=== PATIENT | male | born 1965 | race Caucasian/White ===

== ENCOUNTER 2017-11-26 07:37 | Emergency (ER) | payer BC ==
[~2017-11-26] VITALS: Ht 177.8 cm; Wt 95.5 kg
[~2017-11-26 07:37] MED LIST: ATIVAN 0.50.5 MG/TAB PO; INDERAL 10MG10 MG PO; INDOCIN SR 75MG75 MG PO; LUNESTA3 MG PO; NORCO 325 MG-51 TAB PO; PRINIVIL10 MG PO; PRINIVIL5 MG PO; TESTOSTERONE IJ; VOLTAREN 75 DR75 MG PO; ZESTRIL 10MG10 MG PO; ZOLOFT 100MG100 MG PO; [UNRECOGNIZED DRUG - REMARK]
[2017-11-26 07:40] VITALS: TEMP 98.2
[2017-11-26] MEDS ORDERED: TUSS PO (07:43)
[2017-11-26 08:36] LABS: BASO % 0.3 % (0.0-2.0); EOS # 0.2 (0.0-0.7); GRAN # 3.8 (1.4-6.5); GRAN % 60.9 % (42.2-75.2); LYMPH # 1.4 (1.2-3.4); LYMPH % 22.1 % (20.0-51.0); MEAN CELL VOLUME 96 fl (80.0-100.0); MEAN CORPUSCULAR HGB CONC 34 g/dl (33.0-37.0); MONO # 0.8 (0.1-0.6); MONO % 13.4 % (1.7-9.3); PLATELET COUNT 249 K/mm3 (130-400); RED BLOOD COUNT 6.02 M/mm3 (4.20-5.60); REDCELL DISTRIBUTION WIDTH-CV 13.8 % (11.5-14.5)
[2017-11-26 08:40] LABS: HEMATOCRIT 57.5 % (42.0-52.0); HEMOGLOBIN 19.6 g/dl (13.5-18.0); MEAN CORPUSCULAR HEMOGLOBIN 33 pg (27.0-31.0)
[2017-11-26 08:47] LABS: INFLUENZA A NEGATIVE; INFLUENZA B NEGATIVE
[2017-11-26 09:04] LABS: ALBUMIN 4.9 gm/dL (3.5-5.0); BILIRUBIN,TOTAL 0.7 mg/dL (0.0-1.0); CALCIUM 9.4 mg/dL (8.4-10.2); CREATININE, serum 1.35 mg/dL (0.66-1.25); POTASSIUM 4.6 mmol/L (3.4-5.0); TOTAL PROTEIN 8.3 gm/dL (6.4-8.2)
[2017-11-26] MEDS ORDERED: ZOFRAN ODT4 MG PO (09:54)
[2017-11-26 10:24] VITALS: BP 144/65; PULSE 92
== END 2017-11-26 10:25 | disposition home or self-care (01) ==
LOC: COL.ER 07:37
PROVIDERS: Physician Assistant
DX: J20.9 Acute bronchitis, unspecified (principal); F41.9 Anxiety disorder, unspecified; I10 Essential (primary) hypertension
CPT/HCPCS: J1170; J1885; J2405; J7030

== ENCOUNTER 2018-02-05 14:56 | Inpatient (IN) | payer BC ==
[~2018-02-05] VITALS: Ht 177.8 cm; Wt 91.8 kg
[~2018-02-05 14:56] MED LIST changes: -TESTOSTERONE IJ; +TESTOSTERONE IM; +TUSS PO; +ZOFRAN ODT4 MG PO
[2018-02-05] MEDS ORDERED: PRIL40 PO (16:14)
[2018-02-05 16:24] LABS: BASO % 0.2 % (0.0-2.0); EOS # 0.1 (0.0-0.7); EOS % 0.4 % (0-4.0); GRAN # 9.5 (1.4-6.5); GRAN % 74.5 % (42.2-75.2); HEMATOCRIT 53.8 % (42.0-52.0); HEMOGLOBIN 18.9 g/dl (13.5-18.0); LYMPH # 1.9 (1.2-3.4); LYMPH % 14.8 % (20.0-51.0); MEAN CELL VOLUME 94 fl (80.0-100.0); MEAN CORPUSCULAR HEMOGLOBIN 33 pg (27.0-31.0); MEAN CORPUSCULAR HGB CONC 35 g/dl (33.0-37.0); MEAN PLATELET VOLUME 9.1 fl (7.4-10.4); MONO # 1.2 (0.1-0.6); MONO % 9.6 % (1.7-9.3); PLATELET COUNT 256 K/mm3 (130-400); RED BLOOD COUNT 5.73 M/mm3 (4.20-5.60); REDCELL DISTRIBUTION WIDTH-CV 14.3 % (11.5-14.5)
[2018-02-05 16:47] LABS: ALBUMIN 4.8 gm/dL (3.5-5.0); BILIRUBIN,TOTAL 0.6 mg/dL (0.0-1.0); CALCIUM 9.7 mg/dL (8.4-10.2); CREATININE, serum 1.11 mg/dL (0.66-1.25); POTASSIUM 4.3 mmol/L (3.4-5.0); TOTAL PROTEIN 7.9 gm/dL (6.4-8.2)
[2018-02-05 18:52] VITALS: BP 163/94; PULSE 95; TEMP 98.4
[2018-02-06] VITALS (8 sets, daily range): BP systolic 91–163; BP diastolic 49–102; PULSE 58–102; TEMP 97.9–98.7
[2018-02-06 07:22] LABS: BASO % 0.2 % (0.0-2.0); EOS # 0.1 (0.0-0.7); EOS % 1.2 % (0-4.0); GRAN # 5.4 (1.4-6.5); GRAN % 67.4 % (42.2-75.2); HEMATOCRIT 50.3 % (42.0-52.0); HEMOGLOBIN 17.1 g/dl (13.5-18.0); LYMPH # 1.4 (1.2-3.4); LYMPH % 17.2 % (20.0-51.0); MEAN CELL VOLUME 96 fl (80.0-100.0); MEAN CORPUSCULAR HEMOGLOBIN 33 pg (27.0-31.0); MEAN CORPUSCULAR HGB CONC 34 g/dl (33.0-37.0); MONO # 1.1 (0.1-0.6); MONO % 13.6 % (1.7-9.3); PLATELET COUNT 219 K/mm3 (130-400); RED BLOOD COUNT 5.22 M/mm3 (4.20-5.60); REDCELL DISTRIBUTION WIDTH-CV 14.7 % (11.5-14.5)
[2018-02-06 07:33] LABS: ALBUMIN 4.2 gm/dL (3.5-5.0); BILIRUBIN,TOTAL 1.1 mg/dL (0.0-1.0); CALCIUM 8.6 mg/dL (8.4-10.2); CREATININE, serum 1.07 mg/dL (0.66-1.25); POTASSIUM 4.3 mmol/L (3.4-5.0); TOTAL PROTEIN 7.1 gm/dL (6.4-8.2)
[2018-02-07] VITALS (9 sets, daily range): BP systolic 104–143; BP diastolic 69–80; PULSE 76–87; TEMP 97.6–98.6
[2018-02-07 06:54] LABS: BASO % 0.1 % (0.0-2.0); EOS # 0.1 (0.0-0.7); EOS % 0.5 % (0-4.0); GRAN # 7.8 (1.4-6.5); GRAN % 77.3 % (42.2-75.2); HEMOGLOBIN 15.3 g/dl (13.5-18.0); LYMPH # 1.1 (1.2-3.4); LYMPH % 10.8 % (20.0-51.0); MEAN CORPUSCULAR HEMOGLOBIN 33 pg (27.0-31.0); MEAN CORPUSCULAR HGB CONC 33 g/dl (33.0-37.0); MEAN PLATELET VOLUME 9.3 fl (7.4-10.4); MONO # 1.1 (0.1-0.6); MONO % 10.8 % (1.7-9.3); PLATELET COUNT 185 K/mm3 (130-400); RED BLOOD COUNT 4.62 M/mm3 (4.20-5.60); REDCELL DISTRIBUTION WIDTH-CV 14.9 % (11.5-14.5)
[2018-02-07 07:10] LABS: MEAN CELL VOLUME 102 fl (80.0-100.0)
[2018-02-07 07:12] LABS: ALBUMIN 3.9 gm/dL (3.5-5.0); CALCIUM 7.9 mg/dL (8.4-10.2); CREATININE, serum 1.3 mg/dL (0.66-1.25); POTASSIUM 4.5 mmol/L (3.4-5.0); TOTAL PROTEIN 6.7 gm/dL (6.4-8.2)
[2018-02-08 03:15] VITALS: BP 137/65; PULSE 92; TEMP 99.8
[2018-02-08 06:12] VITALS: BP 135/66; PULSE 83
[2018-02-08 06:42] LABS: BASO % 0.2 % (0.0-2.0); EOS % 0.1 % (0-4.0); GRAN # 9.1 (1.4-6.5); GRAN % 85.7 % (42.2-75.2); HEMATOCRIT 46.4 % (42.0-52.0); HEMOGLOBIN 15.1 g/dl (13.5-18.0); LYMPH # 0.8 (1.2-3.4); LYMPH % 7.4 % (20.0-51.0); MEAN CELL VOLUME 101 fl (80.0-100.0); MEAN CORPUSCULAR HEMOGLOBIN 33 pg (27.0-31.0); MEAN CORPUSCULAR HGB CONC 33 g/dl (33.0-37.0); MEAN PLATELET VOLUME 9.5 fl (7.4-10.4); MONO # 0.7 (0.1-0.6); MONO % 6.1 % (1.7-9.3); PLATELET COUNT 225 K/mm3 (130-400); RED BLOOD COUNT 4.59 M/mm3 (4.20-5.60); REDCELL DISTRIBUTION WIDTH-CV 14.5 % (11.5-14.5)
[2018-02-08 06:57] LABS: BILIRUBIN,TOTAL 0.9 mg/dL (0.0-1.0); CALCIUM 7.7 mg/dL (8.4-10.2); CHOLESTEROL RISK RATIO 4.3; CREATININE, serum 1.09 mg/dL (0.66-1.25); POTASSIUM 4.6 mmol/L (3.4-5.0); TOTAL PROTEIN 6.9 gm/dL (6.4-8.2)
[2018-02-08 08:55] LABS: ARTERIAL BLD GAS O2 SATURATION 95.9 % (92-100); ARTERIAL BLD GAS TCO2 CT 28.9; ARTERIAL BLOOD GAS BASE EXCESS -1.5 (-2-2); ARTERIAL BLOOD GAS PCO2 61.1 mmHg (35-45); ARTERIAL BLOOD GAS PO2 84.3 mmHg (80-100); ARTERIAL BLOOD GAS pH 7.26 (7.35-7.45)
[2018-02-08 09:04] LABS: TROPONIN-I 0.033 ng/mL (0.000-0.034)
[2018-02-08 12:00] VITALS: BP 136/77; PULSE 87
[2018-02-08 15:15] LABS: ARTERIAL BLD GAS O2 SATURATION 94.5 % (92-100); ARTERIAL BLD GAS TCO2 CT 29.3; ARTERIAL BLOOD GAS HCO3 27.4 meq/L (22-26); ARTERIAL BLOOD GAS PCO2 61.3 mmHg (35-45); ARTERIAL BLOOD GAS PO2 79.5 mmHg (80-100); ARTERIAL BLOOD GAS pH 7.27 (7.35-7.45)
[2018-02-08 16:00] VITALS: BP 126/77; PULSE 75; PULSE 83; TEMP 97.8
[2018-02-08 17:49] LABS: ARTERIAL BLD GAS O2 SATURATION 94.2 % (92-100); ARTERIAL BLD GAS TCO2 CT 25.8; ARTERIAL BLOOD GAS BASE EXCESS -3.6 (-2-2); ARTERIAL BLOOD GAS HCO3 24.1 meq/L (22-26); ARTERIAL BLOOD GAS PCO2 54.1 mmHg (35-45); ARTERIAL BLOOD GAS PO2 75.8 mmHg (80-100); ARTERIAL BLOOD GAS pH 7.27 (7.35-7.45)
[2018-02-08 20:00] VITALS: BP 132/78; PULSE 79; TEMP 99.2
[2018-02-09] VITALS: BP 126/77; PULSE 76; PULSE 79; TEMP 98.9
[2018-02-09 04:00] VITALS: BP 103/60; PULSE 70; TEMP 97.9
[2018-02-09 04:41] LABS: ARTERIAL BLD GAS O2 SATURATION 96.3 % (92-100); ARTERIAL BLOOD GAS BASE EXCESS 0.6 (-2-2); ARTERIAL BLOOD GAS HCO3 25.7 meq/L (22-26); ARTERIAL BLOOD GAS PCO2 42.7 mmHg (35-45); ARTERIAL BLOOD GAS PO2 82.2 mmHg (80-100)
[2018-02-09 06:37] LABS: EOS % 0.2 % (0-4.0); GRAN # 6.7 (1.4-6.5); GRAN % 83.3 % (42.2-75.2); HEMATOCRIT 41.1 % (42.0-52.0); HEMOGLOBIN 13.8 g/dl (13.5-18.0); LYMPH # 0.6 (1.2-3.4); LYMPH % 7.5 % (20.0-51.0); MEAN CELL VOLUME 98 fl (80.0-100.0); MEAN CORPUSCULAR HEMOGLOBIN 33 pg (27.0-31.0); MEAN CORPUSCULAR HGB CONC 34 g/dl (33.0-37.0); MEAN PLATELET VOLUME 9.4 fl (7.4-10.4); MONO # 0.7 (0.1-0.6); MONO % 8.5 % (1.7-9.3); PLATELET COUNT 213 K/mm3 (130-400); RED BLOOD COUNT 4.19 M/mm3 (4.20-5.60); REDCELL DISTRIBUTION WIDTH-CV 13.9 % (11.5-14.5)
[2018-02-09 06:57] LABS: ALBUMIN 3.5 gm/dL (3.5-5.0); BILIRUBIN,TOTAL 0.9 mg/dL (0.0-1.0); CALCIUM 7.5 mg/dL (8.4-10.2); CREATININE, serum 1.13 mg/dL (0.66-1.25); MAGNESIUM 1.9 mg/dL (1.6-2.3); PHOSPHOROUS 1.4 mg/dL (2.5-4.5); POTASSIUM 3.9 mmol/L (3.4-5.0); TOTAL PROTEIN 6.2 gm/dL (6.4-8.2)
[2018-02-09 08:00] VITALS: BP 93/56; PULSE 68; TEMP 97
[2018-02-09 10:25] LABS: ARTERIAL BLD GAS O2 SATURATION 98.8 % (92-100); ARTERIAL BLD GAS TCO2 CT 26.3; ARTERIAL BLOOD GAS BASE EXCESS 1.4 (-2-2); ARTERIAL BLOOD GAS HCO3 25.2 meq/L (22-26); ARTERIAL BLOOD GAS PCO2 37.2 mmHg (35-45); ARTERIAL BLOOD GAS pH 7.45 (7.35-7.45)
[2018-02-09 10:27] LABS: ARTERIAL BLOOD GAS PO2 165.2 mmHg (80-100)
[2018-02-09 12:00] VITALS: BP 100/54; PULSE 65; TEMP 97.9
[2018-02-09 16:00] VITALS: BP 113/62; PULSE 68; TEMP 98.9
[2018-02-09 20:00] VITALS: BP 98/60; PULSE 67; TEMP 100.3
[2018-02-10] VITALS: BP 99/62; PULSE 65; TEMP 98.3
[2018-02-10 04:00] VITALS: BP 109/81; PULSE 63; TEMP 100.3
[2018-02-10 04:24] LABS: ARTERIAL BLD GAS O2 SATURATION 94.4 % (92-100); ARTERIAL BLD GAS TCO2 CT 29.7; ARTERIAL BLOOD GAS BASE EXCESS 4.4 (-2-2); ARTERIAL BLOOD GAS HCO3 28.5 meq/L (22-26); ARTERIAL BLOOD GAS PCO2 40.8 mmHg (35-45); ARTERIAL BLOOD GAS PO2 71.1 mmHg (80-100); ARTERIAL BLOOD GAS pH 7.46 (7.35-7.45)
[2018-02-10 05:56] LABS: BASO % 0.4 % (0.0-2.0); EOS # 0.1 (0.0-0.7); EOS % 1.2 % (0-4.0); GRAN # 3.7 (1.4-6.5); GRAN % 71.7 % (42.2-75.2); HEMATOCRIT 40.7 % (42.0-52.0); HEMOGLOBIN 13.7 g/dl (13.5-18.0); LYMPH # 0.8 (1.2-3.4); LYMPH % 14.9 % (20.0-51.0); MEAN CELL VOLUME 97 fl (80.0-100.0); MEAN CORPUSCULAR HEMOGLOBIN 33 pg (27.0-31.0); MEAN CORPUSCULAR HGB CONC 34 g/dl (33.0-37.0); MEAN PLATELET VOLUME 9.3 fl (7.4-10.4); MONO # 0.6 (0.1-0.6); MONO % 11.4 % (1.7-9.3); PLATELET COUNT 179 K/mm3 (130-400); RED BLOOD COUNT 4.18 M/mm3 (4.20-5.60); REDCELL DISTRIBUTION WIDTH-CV 14.4 % (11.5-14.5)
[2018-02-10 06:12] LABS: BILIRUBIN,TOTAL 0.8 mg/dL (0.0-1.0); CALCIUM 7.3 mg/dL (8.4-10.2); CREATININE, serum 1.09 mg/dL (0.66-1.25); MAGNESIUM 2.1 mg/dL (1.6-2.3); PHOSPHOROUS 0.8 mg/dL (2.5-4.5); POTASSIUM 3.1 mmol/L (3.4-5.0); TOTAL PROTEIN 5.9 gm/dL (6.4-8.2)
[2018-02-10 08:00] VITALS: BP 113/74; PULSE 61; TEMP 100
[2018-02-10 12:00] VITALS: BP 105/66; PULSE 63; TEMP 99.5
[2018-02-10 16:00] VITALS: BP 105/66; PULSE 60; TEMP 99.5
[2018-02-10 18:19] LABS: CALCIUM 7.3 mg/dL (8.4-10.2); CREATININE, serum 1.07 mg/dL (0.66-1.25); PHOSPHOROUS 1.9 mg/dL (2.5-4.5); POTASSIUM 3.3 mmol/L (3.4-5.0)
[2018-02-10 20:00] VITALS: BP 124/77; PULSE 58; TEMP 99.4
[2018-02-11] VITALS: BP 101/64; PULSE 62; TEMP 99.2
[2018-02-11 04:00] VITALS: BP 116/69; PULSE 64; TEMP 99.4
[2018-02-11 05:09] LABS: ARTERIAL BLD GAS O2 SATURATION 94.9 % (92-100); ARTERIAL BLD GAS TCO2 CT 28.2; ARTERIAL BLOOD GAS BASE EXCESS 2.6 (-2-2); ARTERIAL BLOOD GAS PCO2 40.8 mmHg (35-45); ARTERIAL BLOOD GAS PO2 76.2 mmHg (80-100); ARTERIAL BLOOD GAS pH 7.44 (7.35-7.45)
[2018-02-11 05:48] LABS: BASO % 0.7 % (0.0-2.0); EOS # 0.1 (0.0-0.7); EOS % 2.8 % (0-4.0); GRAN # 2.6 (1.4-6.5); GRAN % 60.5 % (42.2-75.2); HEMATOCRIT 40.1 % (42.0-52.0); HEMOGLOBIN 13.4 g/dl (13.5-18.0); MEAN CELL VOLUME 99 fl (80.0-100.0); MEAN CORPUSCULAR HEMOGLOBIN 33 pg (27.0-31.0); MEAN CORPUSCULAR HGB CONC 33 g/dl (33.0-37.0); MEAN PLATELET VOLUME 9.5 fl (7.4-10.4); MONO # 0.5 (0.1-0.6); MONO % 12.3 % (1.7-9.3); PLATELET COUNT 166 K/mm3 (130-400); RED BLOOD COUNT 4.07 M/mm3 (4.20-5.60); REDCELL DISTRIBUTION WIDTH-CV 14.7 % (11.5-14.5)
[2018-02-11 06:09] LABS: ALBUMIN 2.9 gm/dL (3.5-5.0); BILIRUBIN,TOTAL 0.4 mg/dL (0.0-1.0); CALCIUM 7.5 mg/dL (8.4-10.2); CREATININE, serum 1.08 mg/dL (0.66-1.25); MAGNESIUM 2.1 mg/dL (1.6-2.3); PHOSPHOROUS 1.8 mg/dL (2.5-4.5); POTASSIUM 3.5 mmol/L (3.4-5.0); TOTAL PROTEIN 5.9 gm/dL (6.4-8.2)
[2018-02-11 06:37] LABS: TSH w REFLEX 4.64 uIU/mL (0.465-4.680)
[2018-02-11 07:20] VITALS: BP 110/70; PULSE 73; TEMP 98.3
[2018-02-11 12:30] VITALS: BP 123/76; PULSE 74; TEMP 99
[2018-02-11 15:25] VITALS: BP 123/80; PULSE 71; TEMP 99
[2018-02-11 15:55] LABS: PTH,INTACT 338.3 pg/mL (6.6-88.9)
[2018-02-11 20:00] VITALS: BP 127/74; PULSE 73; TEMP 99.8
[2018-02-12] VITALS: BP 104/69; PULSE 61; TEMP 97
[2018-02-12 04:00] VITALS: BP 122/83; PULSE 62; TEMP 99.6
[2018-02-12 04:46] LABS: ARTERIAL BLD GAS O2 SATURATION 92.6 % (92-100); ARTERIAL BLD GAS TCO2 CT 22.9; ARTERIAL BLOOD GAS BASE EXCESS -2.1 (-2-2); ARTERIAL BLOOD GAS HCO3 21.8 meq/L (22-26); ARTERIAL BLOOD GAS PCO2 35.1 mmHg (35-45); ARTERIAL BLOOD GAS PO2 67.3 mmHg (80-100); ARTERIAL BLOOD GAS pH 7.41 (7.35-7.45)
[2018-02-12 05:31] LABS: BASO % 0.5 % (0.0-2.0); EOS # 0.1 (0.0-0.7); EOS % 2.1 % (0-4.0); HEMATOCRIT 40.2 % (42.0-52.0); HEMOGLOBIN 13.6 g/dl (13.5-18.0); LYMPH # 1.3 (1.2-3.4); LYMPH % 20.9 % (20.0-51.0); MEAN CELL VOLUME 98 fl (80.0-100.0); MEAN CORPUSCULAR HEMOGLOBIN 33 pg (27.0-31.0); MEAN CORPUSCULAR HGB CONC 34 g/dl (33.0-37.0); MEAN PLATELET VOLUME 9.5 fl (7.4-10.4); MONO # 0.7 (0.1-0.6); MONO % 10.8 % (1.7-9.3); PLATELET COUNT 160 K/mm3 (130-400); RED BLOOD COUNT 4.09 M/mm3 (4.20-5.60); REDCELL DISTRIBUTION WIDTH-CV 14.9 % (11.5-14.5)
[2018-02-12 05:49] LABS: CREATININE, serum 1.13 mg/dL (0.66-1.25); PHOSPHOROUS 2.6 mg/dL (2.5-4.5); POTASSIUM 3.5 mmol/L (3.4-5.0)
[2018-02-12 08:00] VITALS: BP 131/79; PULSE 65; TEMP 97.9
[2018-02-12 12:00] VITALS: BP 158/92; PULSE 86; TEMP 98.2
[2018-02-12] MEDS ORDERED: ATIVAN 1MG T1 MG/TAB (13:21)
[2018-02-12 16:00] VITALS: BP 156/100; PULSE 88; TEMP 98.7
[2018-02-12 20:00] VITALS: BP 174/78; PULSE 84; TEMP 98.1
[2018-02-13] VITALS (7 sets, daily range): BP systolic 150–195; BP diastolic 87–122; PULSE 74–92; TEMP 98.2–98.9
[2018-02-13 05:47] LABS: BASO % 0.5 % (0.0-2.0); EOS # 0.1 (0.0-0.7); EOS % 1.4 % (0-4.0); GRAN # 4.6 (1.4-6.5); GRAN % 70.6 % (42.2-75.2); HEMATOCRIT 44.5 % (42.0-52.0); HEMOGLOBIN 14.9 g/dl (13.5-18.0); LYMPH % 15.6 % (20.0-51.0); MEAN CELL VOLUME 97 fl (80.0-100.0); MEAN CORPUSCULAR HEMOGLOBIN 33 pg (27.0-31.0); MEAN CORPUSCULAR HGB CONC 34 g/dl (33.0-37.0); MEAN PLATELET VOLUME 9.8 fl (7.4-10.4); MONO # 0.7 (0.1-0.6); MONO % 11.1 % (1.7-9.3); PLATELET COUNT 202 K/mm3 (130-400); RED BLOOD COUNT 4.57 M/mm3 (4.20-5.60); REDCELL DISTRIBUTION WIDTH-CV 14.4 % (11.5-14.5)
[2018-02-13 05:59] LABS: CALCIUM 9.2 mg/dL (8.4-10.2); CREATININE, serum 1.32 mg/dL (0.66-1.25); MAGNESIUM 2.1 mg/dL (1.6-2.3); POTASSIUM 3.7 mmol/L (3.4-5.0)
[2018-02-14 01:04] VITALS: BP 171/94; PULSE 78; TEMP 98.2
[2018-02-14 04:20] VITALS: BP 207/122; PULSE 79; TEMP 98.5
[2018-02-14 05:21] VITALS: BP 209/116; PULSE 82
[2018-02-14 06:02] VITALS: BP 155/88
[2018-02-14 07:19] VITALS: BP 156/84; PULSE 74; TEMP 98.3
[2018-02-14 07:45] LABS: BASO % 0.3 % (0.0-2.0); EOS # 0.1 (0.0-0.7); EOS % 0.9 % (0-4.0); GRAN % 72.6 % (42.2-75.2); LYMPH # 0.9 (1.2-3.4); LYMPH % 13.5 % (20.0-51.0); MEAN CELL VOLUME 95 fl (80.0-100.0); MEAN CORPUSCULAR HEMOGLOBIN 33 pg (27.0-31.0); MEAN CORPUSCULAR HGB CONC 34 g/dl (33.0-37.0); MEAN PLATELET VOLUME 9.7 fl (7.4-10.4); MONO # 0.9 (0.1-0.6); MONO % 12.4 % (1.7-9.3); PLATELET COUNT 238 K/mm3 (130-400); RED BLOOD COUNT 4.62 M/mm3 (4.20-5.60); REDCELL DISTRIBUTION WIDTH-CV 14.6 % (11.5-14.5)
[2018-02-14 07:53] LABS: CALCIUM 9.4 mg/dL (8.4-10.2); CREATININE, serum 1.46 mg/dL (0.66-1.25); POTASSIUM 3.1 mmol/L (3.4-5.0)
[2018-02-14 11:19] VITALS: BP 151/89; PULSE 78; TEMP 98.3
[2018-02-14] MEDS ORDERED: NATURE'S B5000 IU/ML PO (17:48)
== END 2018-02-14 19:15 | disposition home or self-care (01) | DRG 438 ==
LOC: COL.ER 14:56 → MEDICAL 17:49 → ICU 02-08 10:37 → MEDICAL 02-08 10:37 → ICU 02-08 11:05 → MEDICAL 02-13 15:55
PROVIDERS: Emergency Medicine; Internal Medicine; Internal Medicine Critical Care Medicine; Internal Medicine Pulmonary Disease; Surgery
PROC: 5A1945Z Respiratory Ventilation, 24-96 Consecutive Hours (ICD-10-PCS; principal; 2018-02-09)
PROC: 0BH17EZ Insertion of Endotracheal Airway into Trachea, Via Natural or Artificial Opening (ICD-10-PCS; 2018-02-09)
PROC: 0DB68ZX Excision of Stomach, Via Natural or Artificial Opening Endoscopic, Diagnostic (ICD-10-PCS; 2018-02-11)
DX: K85.00 Idiopathic acute pancreatitis without necrosis or infection (principal); J96.01 Acute respiratory failure with hypoxia; J96.02 Acute respiratory failure with hypercapnia; J18.9 Pneumonia, unspecified organism; K29.71 Gastritis, unspecified, with bleeding; K29.81 Duodenitis with bleeding; E87.1 Hypo-osmolality and hyponatremia; N17.9 Acute kidney failure, unspecified; I10 Essential (primary) hypertension; R33.9 Retention of urine, unspecified; E87.6 Hypokalemia; E83.39 Other disorders of phosphorus metabolism
CPT/HCPCS: 99222; 99223; 99232-AI; 99233-AI; C1751; C1894; C9113; G0378; J0330; J0360; J0456; J0610; J1200; J1644; J1650; J1940; J2060; J2250; J2270; J2405; J2543; J2550; J2704; J2765; J3010; J3370; J7030; J7040; J7050; J7120; Q9967

== ENCOUNTER 2018-07-12 18:19 | Inpatient (IN) | payer BC ==
[~2018-07-12] VITALS: Ht 177.8 cm; Wt 100.6 kg
[~2018-07-12 18:19] MED LIST changes: +ATIVAN 1MG T1 MG/TAB; +NATURE'S B5000 IU/ML PO; +PRIL40 PO
[2018-07-12 18:55] LABS: BASO % 0.2 % (0.0-2.0); EOS % 0.2 % (0-4.0); GRAN # 9.7 (1.4-6.5); GRAN % 81.1 % (42.2-75.2); LYMPH # 1.3 (1.2-3.4); LYMPH % 11.1 % (20.0-51.0); MEAN CELL VOLUME 94 fl (80.0-100.0); MEAN CORPUSCULAR HGB CONC 34 g/dl (33.0-37.0); MEAN PLATELET VOLUME 9.1 fl (7.4-10.4); MONO # 0.8 (0.1-0.6); PLATELET COUNT 305 K/mm3 (130-400); RED BLOOD COUNT 5.74 M/mm3 (4.20-5.60); REDCELL DISTRIBUTION WIDTH-CV 12.9 % (11.5-14.5)
[2018-07-12 18:58] LABS: HEMOGLOBIN 18.5 g/dl (13.5-18.0); MEAN CORPUSCULAR HEMOGLOBIN 32 pg (27.0-31.0)
[2018-07-12] MEDS ORDERED: AMITRIPTYLINE H75 M1 PO (18:58)
[2018-07-12] MEDS ORDERED: PRINIVIL20 MG PO (18:58)
[2018-07-12 19:12] LABS: ALBUMIN 4.4 gm/dL (3.5-5.0); BILIRUBIN,TOTAL 0.7 mg/dL (0.0-1.0); C-REACTIVE PROTEIN 1.2 mg/dL (0.0-0.9); CALCIUM 9.1 mg/dL (8.4-10.2); CREATININE, serum 1.14 mg/dL (0.66-1.25); POTASSIUM 4.1 mmol/L (3.4-5.0); TOTAL PROTEIN 7.6 gm/dL (6.4-8.2)
[2018-07-12 19:28] LABS: COLLECTION METHOD CLEAN CATCH
[2018-07-12 19:35] LABS: MUCOUS Present /lpf; PH 6 (5-8); SQUAMOUS EPITHELIAL None Seen /hpf; URINE APPEARANCE Clear; URINE BACTERIA None Seen /hpf; URINE BILIRUBIN Negative (NEGATIVE); URINE BLOOD Negative (NEGATIVE); URINE COLOR Yellow; URINE GLUCOSE 1+ (NEGATIVE); URINE KETONE Negative (NEGATIVE); URINE LEUKOCYTE ESTERASE Negative (NEGATIVE); URINE NITRATE Negative (NEGATIVE); URINE PROTEIN(semi-quant) Negative (NEGATIVE); URINE RBC 0-2 /hpf; URINE UROBILINOGEN Negative (NEGATIVE)
[2018-07-12] MEDS ORDERED: AMITRIPTYLINE H25 M1 PO (21:27)
[2018-07-12 21:29] LABS: PROTHROMBIN TIME 11.7 SECONDS (9.7-12.8)
[2018-07-12 21:33] LABS: ALCOHOL(ethanol),MEDICAL < 10 mg/dL; LACTATE DEHYDROGENASE 489 U/L (313-618); MAGNESIUM 1.6 mg/dL (1.6-2.3); PHOSPHOROUS 2.7 mg/dL (2.5-4.5)
[2018-07-12 22:44] VITALS: BP 152/94; PULSE 96; TEMP 98
[2018-07-12 23:12] VITALS: BP 158/100; PULSE 92; TEMP 98.1
[2018-07-13 04:00] VITALS: BP 150/78; PULSE 102; TEMP 97.5
[2018-07-13 06:47] LABS: BASO % 0.2 % (0.0-2.0); EOS % 0.2 % (0-4.0); GRAN % 77.1 % (42.2-75.2); HEMOGLOBIN 17.7 g/dl (13.5-18.0); LYMPH % 11.2 % (20.0-51.0); MEAN CELL VOLUME 97 fl (80.0-100.0); MEAN CORPUSCULAR HEMOGLOBIN 33 pg (27.0-31.0); MEAN CORPUSCULAR HGB CONC 34 g/dl (33.0-37.0); MEAN PLATELET VOLUME 9.3 fl (7.4-10.4); MONO % 10.7 % (1.7-9.3); PLATELET COUNT 258 K/mm3 (130-400); RED BLOOD COUNT 5.45 M/mm3 (4.20-5.60)
[2018-07-13 06:49] LABS: HEMATOCRIT 52.6 % (42.0-52.0)
[2018-07-13 06:51] LABS: CALCIUM 8.6 mg/dL (8.4-10.2); CHOLESTEROL RISK RATIO 6.6; CREATININE, serum 1.16 mg/dL (0.66-1.25); POTASSIUM 4.5 mmol/L (3.4-5.0)
[2018-07-13 08:03] VITALS: BP 148/89; PULSE 101; TEMP 98
[2018-07-13 12:10] VITALS: BP 139/97; PULSE 91; TEMP 97.9
[2018-07-13 16:21] VITALS: BP 148/101; PULSE 106
[2018-07-13 20:10] VITALS: BP 140/81; PULSE 100; TEMP 98.4
[2018-07-13 23:45] VITALS: BP 125/96; PULSE 100; TEMP 98.5
[2018-07-14] VITALS (7 sets, daily range): BP systolic 106–135; BP diastolic 61–91; PULSE 74–103; TEMP 97.6–98.7
[2018-07-14 06:49] LABS: BASO % 0.3 % (0.0-2.0); EOS # 0.1 (0.0-0.7); EOS % 1.2 % (0-4.0); GRAN # 5.2 (1.4-6.5); GRAN % 69.8 % (42.2-75.2); HEMATOCRIT 50.8 % (42.0-52.0); HEMOGLOBIN 16.4 g/dl (13.5-18.0); LYMPH # 1.1 (1.2-3.4); LYMPH % 15.3 % (20.0-51.0); MEAN CELL VOLUME 99 fl (80.0-100.0); MEAN CORPUSCULAR HEMOGLOBIN 32 pg (27.0-31.0); MEAN CORPUSCULAR HGB CONC 32 g/dl (33.0-37.0); MEAN PLATELET VOLUME 9.2 fl (7.4-10.4); MONO % 13.1 % (1.7-9.3); PLATELET COUNT 233 K/mm3 (130-400); RED BLOOD COUNT 5.14 M/mm3 (4.20-5.60); REDCELL DISTRIBUTION WIDTH-CV 12.9 % (11.5-14.5)
[2018-07-14 07:04] LABS: CALCIUM 8.3 mg/dL (8.4-10.2); CREATININE, serum 1.25 mg/dL (0.66-1.25); POTASSIUM 4.9 mmol/L (3.4-5.0)
[2018-07-15 04:05] VITALS: BP 127/72; PULSE 81; TEMP 98.6
[2018-07-15 06:27] LABS: BASO % 0.2 % (0.0-2.0); EOS # 0.1 (0.0-0.7); EOS % 1.4 % (0-4.0); GRAN # 4.2 (1.4-6.5); GRAN % 74.8 % (42.2-75.2); HEMATOCRIT 49.6 % (42.0-52.0); HEMOGLOBIN 16.4 g/dl (13.5-18.0); LYMPH # 0.8 (1.2-3.4); MEAN CELL VOLUME 98 fl (80.0-100.0); MEAN CORPUSCULAR HEMOGLOBIN 32 pg (27.0-31.0); MEAN CORPUSCULAR HGB CONC 33 g/dl (33.0-37.0); MEAN PLATELET VOLUME 9.2 fl (7.4-10.4); MONO # 0.5 (0.1-0.6); MONO % 9.4 % (1.7-9.3); PLATELET COUNT 223 K/mm3 (130-400); RED BLOOD COUNT 5.06 M/mm3 (4.20-5.60); REDCELL DISTRIBUTION WIDTH-CV 12.6 % (11.5-14.5)
[2018-07-15 06:43] LABS: CALCIUM 8.4 mg/dL (8.4-10.2); CREATININE, serum 1.37 mg/dL (0.66-1.25); POTASSIUM 4.9 mmol/L (3.4-5.0)
[2018-07-15 07:29] VITALS: BP 141/85; PULSE 90; TEMP 98.3
[2018-07-15] MEDS ORDERED: FLOMAX 0.40.4 MG/CAP PO (09:42)
[2018-07-15 11:22] VITALS: BP 136/86; PULSE 109; TEMP 98.5
== END 2018-07-15 16:22 | disposition home or self-care (01) | DRG 439 ==
LOC: COL.ER 18:19 → SURG 19:25
PROVIDERS: Emergency Medicine; Nurse Practitioner Family; Physician Assistant
DX: K85.90 Acute pancreatitis without necrosis or infection, unspecified (principal); E87.1 Hypo-osmolality and hyponatremia; I10 Essential (primary) hypertension; E16.2 Hypoglycemia, unspecified; K76.0 Fatty (change of) liver, not elsewhere classified
CPT/HCPCS: OP; 99223-AI; 99232-AI; 99239; A9284; C9113; G0378; J1170; J1200; J1650; J2270; J2405; J7030; J7042; Q9967